=== PATIENT | female | born 2000 | race Hispanic/Latino ===

== ENCOUNTER 2021-06-02 15:28 | Outpatient (CLI) | payer OTHER, SELFPAY ==
--- NOTE | ~2021-06-02 | XR_ITS ---
EXAMINATION: XR chest 2V DATE: 06/02/2021 15:50 INDICATION: Personal history of tuberculosis. TECHNIQUE: Frontal and lateral views of the chest were obtained. COMPARISON: None. FINDINGS: There is minimal scarring at the lung apices. No pleural effusion or pneumothorax. The hear t size is normal. IMPRESSION: 1. Minimal scarring at the lung apices. Reviewed, dictated and finalized at location B.
== END 2021-06-02 15:29 | disposition home or self-care (01) ==
LOC: ANHIMG 15:30
PROVIDERS: PCP Family Medicine; Visit Provider Family Medicine
DX: Z86.11 Personal history of tuberculosis (principal)
CPT/HCPCS: 71046

== ENCOUNTER 2024-11-29 14:41 | Outpatient (CLI) | payer OTHER, SELFPAY ==
--- OUTSIDE RECORDS SUMMARY | 2024-09-20 10:40 | XMS_ITS ---
Author Organization [facility] Address [address] [place] [address] Care Team Providers Care Neuropathologist Name Role Phone Regina Oro Unavailable [phone] Jia Ladd [phone] REASON FOR VISIT 1 month f/u Encounters Encounter Location Date Provider Diagnosis [facility] L[facility] [address] [place] [address] 09/20/2024 Jia Ladd Plan Of Treatment Next Appt Details Provider Name:Jia Ladd, 02:50:00 PM, [address] [place] [address], [phone], Progress Notes * MEGAN KEEDOB: 0 (24 yo F)Acc No.[id number]:09/20/2024 Progress Notes Patient: MICHELE BAIRDENIA Provider: Manas Ladd MD :2000 A ge:24 Y S ex:Female Date:09/20/2024 Phone: Address:[address] [place] [address] Subjective: * Chief Complaints: * 1 month f/u * Electronic signature of Albert Ladd MD on 11/29/2024 at 02:48 PM CDT Sign off status: Pending * Provider: Manas Ladd MD Date: 0 09/20/2024 Generated for Lamonti ng/Fasafiag/eTransmitting on: 1 02:48 PM CDT
--- OUTSIDE RECORDS SUMMARY | 2024-10-22 10:20 | XMS_ITS ---
Author Organization [facility] Address [address] [place] [address] Care Team Providers Care Belt Cleaner Name Role Phone Regina Oro Unavailable [phone] Jia Ladd [phone] REASON FOR VISIT 1 month f/u Encounters Encounter Location Date Provider Diagnosis [facility] [address] L[facility] [address] [place] [address] 10/22/2024 Jia Ladd Plan Of Treatment Next Appt Details Provider Name:Jia Ladd, 02:50:00 PM, [address] [place] [address], [phone], Progress Notes * MEGAN KEEDOB: 0 (24 yo F)Acc No.[id number]:10/22/2024 Progress Notes Patient: MICHELE BAIRDENIA Provider: Manas Ladd MD :2000 A ge:24 Y S ex:Female Date:10/22/2024 Phone: Address:[address] [place] [address] Subjective: * Chief Complaints: * 1 month f/u * Electronic signature of Albert Ladd MD on 11/29/2024 at 02:48 PM CDT Sign off status: Pending * Provider: Manas Ladd MD Date: 0 10/22/2024 Generated for Lamonti ng/Fasafiag/eTransmitting on: 1 02:48 PM CDT
--- OUTSIDE RECORDS SUMMARY | 2024-11-18 10:40 | XMS_ITS ---
Author Organization [facility] Address [address] [place] [address] Care Team Providers Care Welding Foreman Name Role Phone Regina Oro Unavailable [phone] Jia Ladd Unavailable [phone] REASON FOR VISIT lab f/u Medications Medication SIG (Take, Route, Frequency, Duration) Notes Start Date End Date Status ARIPiprazole 2 MG Tablet Oral; Duration: 15 Days Active metFORMIN HCl ER 500 MG Tablet Extended Release 24 Hour 1 tablet with meal Orally twice a day; Duration: 100 days 07/15/2024 Active Escitalopram Oxalate 10 MG Tablet Oral; Duration: 30 Days Acti ve Encounters Encounter Location Date Provider Diagnosis [facility] Ladd [address] [place] [id number] 11/18/2024 Jia Ladd Plan Of Treatment Next Appt Details Provider Name:Jia Ladd 02:50:00 PM, [address] [place] [address], [phone], History and Physical Notes * HPI (History of Present Illness) Category Sub-Category Detail Notes Category Not es History of Present Illness 24 yo female comes in today to discuss management and evaluation of subclinical hypothyroidism, mixed dyslipidemia and insulin resistance. Concern for potential hypercortisolism. DST of 2.8 ug/dL from July however patient on control/at her initial visit in August we explained to patient how to do a correct DST and this was normal at 0.9 ug/dl. Salivary cortisol was high at 0.49 ug/dL She has insulin resistance and hypertriglyceridemia and difficulty losing weight Last seen in September we sent for CT adrenals Progress Notes * MEGAN KEEDOB: 0 (24 yo F)Acc No.[id number]:11/18/2024 Progress Notes Patient: Pool GODOYMEGAN HERNANDEZ Provider: Manas Ladd MD :2000 A ge:24 Y S ex:Female Date:11/18/2024 Phone: Address:[address] [place] [address], [id number] Subjective: * Chief Complaints: * L ab f/u * HPI: H istory of Present Illness: 24 yo female comes in today to discuss management and evaluation of subclinical hypothyroidism, mixed dyslipidemia and insulin resistance. C oncern for potential hypercortisolism. DST of 2.8 ug/dL from July however patient on control/at her initial visit in August we explained to patient how to do a correct DST and this was normal at 0.9 ug/dl. S alivary cortisol was high at 0.49 ug/dL She has insulin resistance and hypertriglyceridemia and difficulty losing weight Last seen in September we sent for CT adrenals. * Medications: T akingARIPiprazole 2 MG Tablet Oral Escitalopram Oxalate 10 MG Tablet Oral metFORMIN HCl ER 500 MG Tablet Extended Release 24 Hour 1 tablet with meal Orally twice a day Taking ARIPiprazole 2 MG Tablet Oral Taking Escitalopram Oxalate 10 MG Tablet Oral Taking metFORMIN HCl ER 500 MG Tablet Extended Release 24 Hour 1 tablet with meal Orally twice a day Billing Information: * Procedure Codes: * Electronic signature of Albert Ladd MD on 11/29/2024 at 02:48 PM CDT Sign off status: Pending * Provider: Manas Ladd MD Date: Generated for Rukhsana call/Carissa/Paulineitting on: 02:48 PM CDT
--- NOTE | ~2024-11-29 | CT_ITS ---
CT abdomen wo con INDICATION:disorder of adrenal gland . COMPARISON: None. TECHNIQUE: Axial 2.5 mm images of the abdomen were obtained without IV or oral contrast. Diagnostic sensitivity is limited due to lack of IV contrast. FINDINGS: The lung bases are clear. The liver parenchyma is unremarkable. No intrahepatic mass or ductal dilatation is evident. The gallbladder is unremarkable. The pancreas and spleen are normal in appearance. The adrenal glands are symmetric in size. The kidneys are unremarkable. No intrarenal stones are noted. There is no hydronephrosis. The stomach and bowel loops are unremarkable. The appendix is normal in appearance. The bladder and rectum are normal. The uterus and both adnexa are unremarkable. No free intraperitoneal fluid or air is evident. There is no significant retroperitoneal lymphadenopathy. The aorta, visceral vessels and renal arteries demonstrate normal caliber. The lower thoracic and lumbar vertebrae are in normal alignment. IMPRESSION: No acute abnormality is noted in the abdomen and pelvis. All CT scans at this facility are performed using low dose modulation techniques as appropriate to perform exam including the following: automated exposure control; use of iterative reconstruction technique; adjustment of the mA and/or kV according to patient size (this includes techniques or standardized protocols for targeted exams where dose is matched to indication/reason for exam). All CT scans at this facility are performed using low dose modulation techniques as appropriate to perform exam including the following: automated exposure control; use of iterative reconstruction technique; adjustment of the mA and/or kV according to patient size (this includes techniques or standardized protocols for targeted exams where dose is matched to indication/reason for exam). Reviewed, dictated and finalized at location S. IMPRESSION: No acute abnormality is noted in the abdomen and pelvis. All CT scans at this facility are performed using low dose modulation techniqu es as appropriate to perform exam including the following: automated exposure c ontrol; use of iterative reconstruction technique; adjustment of the mA and/or kV according to patient size (this includes techniques or standardized protocol s for targeted exams where dose is matched to indication/reason for exam). All CT scans at this facility are performed using low dose modulation techniqu es as appropriate to perform exam including the following: automated exposure c ontrol; use of iterative reconstruction technique; adjustment of the mA and/or kV according to patient size (this includes techniques or standardized protocol s for targeted exams where dose is matched to indication/reason for exam).
--- OUTSIDE RECORDS SUMMARY | 2024-11-29 14:48 | XMS_ITS | Data Portability ---
Author Organization [facility], Olla Address [address] [place] [address] [place] [address] Assessment Encounter Date Assessment Date Assessment LastModified by Organization Details LastModified Time 07/05/2021 07/05/2021 Annual gynecological exam performed. Patient will come back in a year unless there are new symptoms. Not available 07/02/2021 15:15:18 04/22/2024 04/22/2024 Annual gynecological exam performed. Patient will come back in a year unless there are new symptoms. [email or web address] Not available 04/22/2024 09:19:55 Plan of Treatment Reminders Order Date Submit Date Provider Last Modified By Organization Details Last Modified Time Details Appointments None recorded . Lab pap, IG + reflex HPV if ASC-U - if hpv positive run subtypin g 16, 18/45 2024 025 [facility] (Lab), [address], [place], [address], 5 17:59:34 Referral dermatol ogist referral - Referrin g this patient for multiple skin lesions Please contact this patient to schedule an appointm ent Attached to this referral are the patients demograp hics and most recent office visit notes. If you have any question s or require further informat ion, please contact me at [phone]. Thank you, Alejandra, Referral 's 2021 022 camilla Ramirez MD (Dermatology) , [address], [address], [place], [address], 11/18/202 2 15:39:02 Procedures None recorded . Surgeries None recorded . Imaging None recorded . Medication Orders None recorded . Patient TargetsNo targets recorded. Patient InstructionsNo instructions recorded. 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 M elanocytic nevus of skin Multiple Skin Lesions Referring this patient for multiple skin lesionsPlease contact this patient to schedule an appointmentAttached to this referral are the patients demographics and most recent office visit notes.If you have any questions or require further information, please contact me at [phone].Thank you,Alejandra Referral's Referring Physician: Lynne Narayan, SENIOR ESCROW OFFICER, Encounter Date: 07/05/2021 Results Created Date Observation Date Name Description Value Unit Range Abnormal Flag Note LastModifiedBy Organization Detail LastModifiedTime 07/06/19 22 07/05/2021 IMAGE GUIDE D PAP, REFLE X HPV IF ASCUS ONLY image guided Pap, reflex HPV ASCUS only SEE RESULT S BELOW CASE REPOR T: Cytol ogy Gynec ologi darcy Repor t Case: [id number] Autho marlo lee Provi darling: Lynne Narayan, BREE Colle cted: 07/05 1210 Order ing Locat ion: [place] [facility] [place] Recei tiff: 07/06 0817 First Scree n: Felecia Eduardo, CT Speci men: Scree hunter Pap - Image d, Cervi x STATE MENT OF ADEQU ACY: Satis facto ry for evalu ation Trans forma tion zone compo nent prese nt FINAL DIAGN OSIS: Negat arthur for Intra epith elial Brandi españa or [place] (NIL) . Elect luzmaria tapia lakshmi d by Felecia Eduardo, CT on 2021 at 9:29 AM ----- ----- ----- ----- ----- ----- ----- ----- ----- ----- ----- ----- ----- ----- ----- ----- ----- ---- COMME NT: Note: This speci men was revie wed by a Cytot echno logis t and/o r Patho logis t (as indic ated in this repor t) after evalu ation using the Thinp rep Imagi ng Syste m. CLINI DARCY INFOR MATIO N: Menst rual Statu s: LMP (if appli cable ): Clini darcy Histo ry/Pr eviou s Pap: Type of Neopl leilani (if appli cable ): Signi fican t Clini darcy Findi ngs: Other Histo ry: Hormo ann (if appli cable ): PAP EDUCA GIULIANO L NOTE: The Pap Test is a scree hunter test with an inher ent false negat arthur rate. Liqui d-bas ed sampl ing may decre ase, but will not elimi naz, false negat arthur resul ts. A negat arthur resul t does not precl ude the prese nce and/o r devel opmen t of disea se, since the prese nce of abnor mal cells in the sampl e depen ds on the locat ion of the lesio n and sampl ing techn ique. Tate nued regul ar scree hunter is the best metho d of cance r preve ntion . If repor roselia cytol ogic findi ng do not corre late with physi darcy and/o r histo rical findi ngs, furth er inves tigat ion is recom pan d, as clini radha madsen nted. Not Available [facility] (Lab) [address], [place], [address], 07/10/2021 10:32:21 07/06/19 22 07/05/2021 TRICH OMONA S VAGIN MAHAD (RRNA ) trichomonas vaginalis ribosomal RNA (rrna) Negati ve negati ve Not Available [facility] (Lab) [address], [place], [address], 07/10/2021 10:32:22 07/06/19 22 07/05/2021 CT/GC (BRO) , THINP REP VIAL chlamydia trachomatis, PCR Negati ve negati ve Not Available [facility] (Lab) [address], [place], [address], 07/10/2021 10:32:23 07/06/19 22 07/05/2021 CT/GC (BRO) , THINP REP VIAL neisseria gonorrhoeae, PCR Negati ve negati ve Not Available [facility] (Lab) [address], [place], [address], 07/10/2021 10:32:23 04/23/19 25 04/22/2024 IMAGE GUIDE D PAP, REFLE X HPV IF ASCUS ONLY image guided Pap, reflex HPV ASCUS only SEE RESULT S BELOW CASE REPOR T: Cytol ogy Gynec ologi darcy Repor t Case: [id number] Autho marlo lee Provi darling: Raymundo hair, Mikala , ANP, SOLAR MANAGER Colle cted: 04/22 1137 Order ing Locat ion: [place] Path[place] Recei tiff: 04/23 1150 First Scree n: Ynes Walker ret CT Speci men: Scree hunter Pap - Image d, Cervi x STATE MENT OF ADEQU ACY: Satis facto ry for evalu ation Trans forma tion zone compo nent prese nt ----- ----- ----- ----- ----- ----- ----- ----- ----- ----- ----- ----- ----- ----- ----- ----- ----- ---- FINAL DIAGN OSIS: Negat arthur for Intra epith elial Lesio patria or [place] (NIL) . Elect luzmaria martins d by LACHELLE Burk ret on 2024 at 1656 CDT ----- ----- ----- ----- ----- ----- ----- ----- ----- ----- ----- ----- ----- ----- ----- ----- ----- ---- COMME NT: This speci men was revie wed by a Cytot echno logis t and/o r Patho logis t (as indic ated in this repor t) after evalu ation using the Thinp rep Imagi ng Syste m. CLINI DARCY INFOR MATIO N: Menst rual Statu s: LMP (if appli cable ): Clini darcy Histo ry/Pr eviou s Pap: Type of Neopl leilani (if appli cable ): Signi fican t Clini darcy Findi ngs: Other Histo ry: Hormo ann (if appli cable ): PAP EDUCA GIULIANO L NOTE: The Pap Test is a scree hunter test with an inher ent false negat arthur rate. Liqui d-bas ed sampl ing may decre ase, but will not elimi naz, false negat arthur resul ts. A negat arthur resul t does not precl ude the prese nce and/o r devel opmen t of disea se, since the prese nce of abnor mal cells in the sampl e depen ds on the locat ion of the lesio n and sampl ing techn ique. Tate nued regul ar scree hunter is the best metho d of cance r preve ntion . If repor roselia cytol ogic findi ng do not corre late with physi darcy and/o r histo rical findi ngs, furth er inves tigat ion is recom pan d, as clinnish madsen nted. Not Available [facility] (Lab) [address], [place], [address], 04/25/2024 17:59:34 Result Notes None recorded. Procedures Surgical History Date Name Laterality Status Provider Name and Address Organization Details Recorded Time 5 Nexplanon Removal completed MIKALA GREEN NP [address], [place], [address], [place] [facility] 05/01/2024 10:31:21 2 Date of Last Pap Smear completed Lilia Mahoney [facility] 04/22/2024 09:20:21 Imaging Results None recorded. Procedure Notes None recorded. Medical Equipment None Reported. Allergies No known drug allergies Medications Name Sig Start Date Stop Date Status Note LastModified by Organization Details LastModified Time quetiapine 200 mg tablet TAKE 1 TABLET BY MOUTH EVERY DAY AT BEDTIME 04/22 completed Not Available Not Available Not Available metronidazo le 500 mg tablet TAKE 1 TABLET BY MOUTH EVERY 12 HOURS FOR 7 DAYS 04/22 completed Not Available Not Available Not Available hydroxyzine HCl 50 mg tablet TAKE 1 TABLET BY MOUTH TWICE DAILY 04/22 completed Not Available Not Available Not Available citalopram 20 mg tablet TAKE 1 TABLET BY MOUTH ONCE DAILY 07/05 completed Not Available Not Available Not Available olanzapine 15 mg tablet TAKE 1 TABLET BY MOUTH AT BEDTIME 07/05 completed Not Available Not Available Not Available ondansetron 4 mg disintegrat ing tablet DISSOLVE 1 TABLET IN MOUTH EVERY 8 HOURS NEEDED FOR NAUSEA AND VOMITING 04/22 completed Not Available Not Available Not Available escitalopra m 10 mg tablet TAKE 1 TABLET BY MOUTH ONCE DAILY active Not Available Not Available No t Available aripiprazol e 5 mg tablet TAKE 1 TABLET BY MOUTH ONCE DAILY active Not Available Not Available No t Available aripiprazol e 2 mg tablet TAKE 2 TABLETS BY MOUTH ONCE DAILY active Not Available Not Available No t Available quetiapine 50 mg tablet TAKE 1 TABLET BY MOUTH EVERY DAY AT BEDTIME 04/22 completed Not Available Not Available Not Available Nexplanon 68 mg subdermal implant Inject by subcutane ous route. 2020 active Not Available Not Available Not Avai lable Vitals Date Recorded Body height Body mass index (BMI) Body weight Systolic And Diastolic Provider Name and Address Organization Details Last Updated DateTime 04/22/2024 167.64 cm 31 kg/m2 21844.02 g 138/85 mm[Hg] [facility] 04/22/2024 11:03:48 Date Recorded Body height Body mass index (BMI) Body weight Systolic And Diastolic Provider Name and Address Organization Details Last Updated DateTime 05/01/2024 167.64 cm 30.9 kg/m2 80702.86 g 116/80 mm[Hg] [facility] 05/01/2024 10:05:17 Date Recorded Body height Body mass index (BMI) Body weight Systolic And Diastolic Provider Name and Address Organization Details Last Updated DateTime 07/05/2021 167.64 cm 24.6 kg/m2 16842.2 g 127/86 mm[Hg] Radha Garcia [facility] 07/05/2021 11:05:01 Social History Question Answer Notes LastModified by Organizat ion Details LastModified Time Tobacco Smoking Status Never Smoker Radha Garcia null, [facility] 07/05/2021 11:06:44 Do You Have An Advance Directive? No Information n ot available 07/05/2021 How Many Years Have You Consumed Alcohol? 5 Information not available 07/05/2021 Are You Blind Or Do You Have Difficulty Seeing? Yes [email or web address] Information n ot available 05/01/2024 What Is Your Level Of Caffeine Consumption? Moderate Information not available 07/05/2021 In The 14 Days Before Symptom Onset, Have You Had Close Contact With A Laboratory-confirm ed COVID-19 While That Case Was Ill? No Information n ot available 07/05/2021 In The 14 Days Before Symptom Onset, Have You Had Close Contact With A Person Who Is Under Investigation For COVID-19 While That Person Was Ill? No Information not available 07/05/2021 Have You Been To An Area Known To Be High Risk For COVID-19? No Information not available 07/05/2021 Are You Deaf Or Do You Have Serious Difficulty Hearing? No Information not available 07/05/2021 What Type Of Diet Are You Following? REGULAR Information n ot available 07/05/2021 What Is The Highest Grade Or Level Of School You Have Completed Or The Highest Degree You Have Received? [id number] Information not available 07/05/2021 Are There Any Guns Present In Your Home? No Information not available 07/05/2021 Do You Use Protection During Sex? Usually Information not available 07/05/2021 Do You Use Your Seat Belt Or Car Seat Routinely? Yes Information not available 07/05/2021 Do You Have Smoke And Carbon Monoxide Detectors In Your Home? Yes Information not available 07/05/2021 How Much Tobacco Do You Smoke? No Information not available 07/05/2021 Do You Use Sunscreen Routinely? Yes [email or web address] Information not available 05/01/2024 Have You Used IV Drugs? No Information not available 07/05/2021 Do You Have Difficulty Walking Or Climbing Stairs? No Information not available 07/05/2021 Sex: Unknown Functional Status Question Answer Note LastModified by OrganOcapiat ion Details LastModified Time Do you use any illicit or recreational drugs? No Information not available 07/05/2021 What is your level of alcohol consumption? Occasional Information not available 07/05/2021 Are you able to walk independently without assistance or assistive devices? YESWOREST Information not available 07/05/2021 Are you able to care for yourself independently? 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 No Information not available 07/05/2021 What is your exercise level? Moderate Information not available 07/05/2021 Mental Status Question Answer Note LastModified by Organization D etails LastModified Time Do you feel stressed (tense, restless, nervous, or anxious, or unable to sleep at night)? [id number] [email or web address] Information not available 05/01/2024 Family History Relationship Description Onset Age of this Age Resolved Age Notes LastModified by Organization Details LastModified Time Paternal Grandfather Anxiety disorder Not available 2021 11:05:04 Father Anxiety disorder Not available 2021 11:05:04 Mother Anxiety disorder Not available 2021 11:05:04 Paternal Uncle Anxiety disorder Not available 2021 11:05:04 Medical History Condition Response Allergies (Food, seasonal, environmental ) N Other N Breast Cancer N Drug/Latex Allergies/Reactions N Blood Transfusion N Lung Disease N Dermatologic Disorders N Defects or Inherited Disease N Breast Problem N Gestational Diabetes N Hematologic disorders N Anesthesia Complications N History of STI N Deep Vein Thrombosis N Polycystic ovary syndrome N Anxiety Disorder Y Autoimmune disease N Arthritis N Polyps N Infertility N History of abnormal pap N Acid Reflux (GERD) N Cancer N Varicosities N Stroke N Neurologic/Epilepsy N Endometriosis N High Cholesterol N Fibromyalgia N Headaches N Kidney Disease N Heart Problems N Kidney or Bladder Problems N Thyroid Problems N GI Problems N Eating Disorder N Anemia N Art (IVF or FET) N Psychiatric Illness N Ovarian Cancer N Diabetes N Pulmonary (TB, Asthma) N Hepatitis/Liver Disease N No Past Medical History N Eczema N Urinary Tract Infection N Abuse/Domestic Violence N Asthma N Trauma/Violence N Depression/ depression Y Heart Disease N Pre-Eclampsia N Hypertension N Osteoporosis N Thrombophilias N Gynecological History Statement/Question Response Abnormal Pap N Flow Light Date of LMP 04/22/2024 On BCP's at Conception? Y N STIs/STDs N HPV Vaccine N Duration of Flow (days) 7 Current Control Method None Date of control 09/28/2020 Sexually Active? Y Menses Monthly N Age of first menstrual cycle 12 Date of Last Pap Smear 07/05/2021 Sexual Problems? N LMP Approximate N Obstetrics History GPAL:G 0 P 0 0 0 0 Past Encounters Encounter ID Performer Location Encounter Start Date Encounter Closed Date Diagnosis/Indication Diagnosis SNOMED-CT Code Diagnosis ICD10 Code Diagnosis IMO Codes Diagnosis Note [id number] CARMITA Cristobal Olla [address] [address] 07/05/2021 10:55:31 07/05/2021 11:50:43 Gynecologic examination 04985068 Z01.419 Take Calcium with Vitamin D 1200mg daily if not receiving in daily diet. It is strongly advised to have an annual flu shot and up can obtain at most pharmacies . If you have not had a TDap shot in the last 10 years you should obtain one as well. Discussed with patient & provided with informatio n regarding Gardisil vaccine to prevent the 4 strains for HPV that cause cervical cancer if under age 26. Encourage safe sexual practices, to use condoms and limit partners if not already in a monogamous relationsh ip. Do monthly self breast exams. Have mammogram yearly or every other year depending on family history. BRCA testing is now available for patients with strong genetic history of female cancer. If interested contact the office. Engage in daily exercise of low impact aerobic exercise 45-60 minutes 4-5 times weekly. Avoid tobacco and illicit drugs as well as using moderation with alcohol intake less than 1-2 8 oz beverages daily. This lifestyle behavior pattern will lead to less health conditions and longer life span. If BMI greater than 25 weight watchers or dietary consult advised. Patient received above instructio ns, and questions have been answered. If you have any questions please call or respond to this email. Patient was made aware of the patient portal and may obtain a paper copy of today's plan if desired. WWE, no issuesNexp lanon for control, happy with this method. Inserted September 2020, needs replaced by September 2023.First pap done todayDecli ann STI testingNo family hx of breast or ovarian cancerNeed s to establish care with a PCPDerm referral for multiple skin lesionsRTC in one year for WWE or sooner if needed Contracept ion care management 909899586 Z30.9 Melanocyti c nevus of skin 451518998 D22.9 [id number] Pelon Lyon MD [facility] [address] [address] 04/22/2024 10:50:22 04/22/2024 11:23:42 Gynecologic examination 21868878 Z01.419 Annual gynecologi darcy exam performed. Patient will come back in a year unless there are new symptoms. Suggest Calcium with Vitamin D if not eating in diet. Patient advised to get annual flu shot. Recommend yearly physicals and perform monthly breast exams. Genetic testing is available for patients with family history of cancer. Engage in safe sexual practices, use condoms. Encouraged to have daily exercise. Avoid tobacco and illicit drugs, moderation of alcohol. If BMI greater than 25 dietary consult advised. If you have any questions please call or email. Pap smear- pap w/ HPV collected laboratory evaluation - PCP (pt states she gets bloodwork q3-6 months) STI testing - declined Contracept ion care management [id number] Z30.9 Patient desires to have Nexplanon removed () and she declines another BC option at this time.Patie nt prefers to use condoms.Pt to RTO for Nexplanon removal. [id number] Pelon Lyon MD [facility] [address] [address] 05/01/2024 09:52:59 05/01/2024 10:35:20 Removal of subcutaneous contraceptive 279061480 Z30.46 Patient tolerated procedure well. We discussed backup method of control if she becomes sexually active. Discussed that most women do not experience pain after removal, but if it occurs, OTC pain medication usually provide relief. She should call the provider if she develops pain, discharge, or swelling at the removal site, fever, or other concerns. Health Concerns Section Related Observation LastModified by Organization Detai ls LastModified Time None Recorded Concern Status LastModified by Organization Details LastModified Time None Recorded Advance Directives Directive N: Payers Insurance Date Sequence Insurance Name Policy Number Policy Longo Covered Member ID Longo Member ID Guarantor Name 04/30/2024 1 [facility] [id number] Rekha Antonio [id number] Rekha Alvarez 06/04/2021 1 *SELF PAY* Ananth Alvarez 04/30/2024 1 [facility] (O) Rekha Antonio 1 Rekha Antonio Notes Date Note Type Note Provider Name and Address Organization Details Recorded Time 07/06/19 22 text/htm l Annual GYNReported by PatientGenitourinary symptomsFor menstrual cycle, patient reportsnormal menses. For urinary symptoms, patient reportsno hematuriaandno incontinence. For vulva, patient reportsno genital lesion. For vagina, patient reportsnormal vaginal discharge.Breast symptomsFor breast, patient reportsno breast pain,no breast lump, andno nipple discharge.ContraceptionFor current contraception, patient reportssatisfied with current contraceptionandsubdermal contraceptive implant.Endocrine symptomsFor sexual complaints, patient reportsno sexual complaints,no pain during intercourse, andnormal libido. For menopausal symptoms, patient reportsno menopausal symptomsandnormal vaginal lubrication.Psychological symptomsFor psychological symptoms, patient reportsno depression,no anxiety, andno pmdd.Preventative measuresFor preventive measures, patient reportsencourage self breast examination,encourage regular exercise,encourage no tobacco use, andencourage regular mammograms starting age 40. CARMITA Cristobal [address], [place], [address], [facility] 07/05/2021 11:33:53 04/23/19 25 text/htm l Annual GYNReported by PatientGenitourinary symptomsFor menstrual cycle, patient reportsirregular cycle intervals (nexplanon). For urinary symptoms, patient reportsno hematuriaandno incontinence. For vulva, patient reportsno genital lesion. For vagina, patient reportsnormal vaginal discharge.Breast symptomsFor breast, patient reportsno breast pain,no breast lump, andno nipple discharge.ContraceptionFor current contraception, patient reportsimplanon.Endocrine symptomsFor sexual complaints, patient reportsno sexual complaints,no pain during intercourse, andnormal libido. For menopausal symptoms, patient reportsno menopausal symptomsandnormal vaginal lubrication.Psychological symptomsFor psychological symptoms, patient reportsno depression,no anxiety, andno pmdd.Preventative measuresFor preventive measures, patient reportsencourage self breast examination,encourage regular exercise,encourage no tobacco use, andencourage regular mammograms starting age 40. Patient presents for annual well woman exam. Patient denies concerns today.Patient would like to discuss having Nexplanon removed. MIKALA GREEN NP [address], [place], [address], [facility] 04/22/2024 11:23:15 05/02/19 25 text/htm l Patient here for Nexplanon removal. Informed consent obtained. MIKALA GREEN NP [address], [place], [address], [facility] 05/01/2024 10:34:05 OBGyn Episode No OBEpisode recorded.
--- OUTSIDE RECORDS SUMMARY | 2024-11-29 14:48 | XMS_ITS | Patient Health Record ---
Author Organization [facility] saldana Address [address] [place], [place] [address] Care Team Providers Care Human Service Technician Name Role Phone Regina Oro Unavailable [phone] Jia Ladd Unavailable [phone] Allergies No Known Allergies Results Component Value Reference Range Flag Notes .COMPREHENSIVE METABOLIC HESS EL (97890) CMP Reviewed date:07/15/2024 07:38:03 AM Interpretation: Performing Lab:JAMES, Telnic [address] [facility] [facility] Notes/Report: FASTING:YES FASTING: YES GLUCOSE 88 65-99 mg/dL N Fasting reference interval UREA NITROGEN (BUN) 10 7-25 mg/dL N CREATININE 0.59 0.50-0.96 mg/dL N EGFR 129 > OR = 60 mL/min/1.73m2 N BUN/CREATININE RATIO SEE NOTE: 6-22 (calc) Not Reported: BUN and Creatinine are within reference range. SODIUM 136 135-146 mmol/L N POTASSIUM 3.9 3.5-5.3 mmol/L N CHLORIDE 102 98-110 mmol/L N CARBON DIOXIDE 27 20-32 mmol/L N CALCIUM 9.8 8.6-10.2 mg/dL N PROTEIN, TOTAL 7.2 6.1-8.1 g/dL N ALBUMIN 4.7 3.6-5.1 g/dL N GLOBULIN 2.5 1.9-3.7 g/dL (calc) N ALBUMIN/GLOBULIN RATIO 1.9 1.0-2.5 (calc) N BILIRUBIN, TOTAL 0.5 0.2-1.2 mg/dL N ALKALINE PHOSPHATASE 91 31-125 U/L N AST 19 10-30 U/L N ALT 26 6-29 U/L N .LIPID PANEL, STANDARD (2640 ) Reviewed date:07/15/2024 07:38:03 AM Interpretation: Performing Lab:JAMES DeNovaMed11636 Administration Mony Starr HfixxxdHZ[address] [facility] Notes/Report: FASTING:YES FASTING: YES CHOLESTEROL, TOTAL 225 <200 mg/dL H HDL CHOLESTEROL 44 > OR = 50 mg/dL L TRIGLYCERIDES 194 <150 mg/dL H LDL-CHOLESTEROL 148 H Reference range: <100 Desirable range <100 mg/dL for primary prevention; <70 mg/dL for patients with CHD or diabetic patients with > or = 2 CHD risk factors. LDL-C is now calculated using the Malini calculation, which is a validated novel method providing better accuracy than the Friedewald equation in the estimation of LDL-C. Tashi SS et al. DECLAN. 2013;310(19): 0573-3290 (http://education.CHOBOLABS/faq/FAQ16 4) CHOL/HDLC RATIO 5.1 <5.0 (calc) H NON HDL CHOLESTEROL 181 <130 mg/dL (calc) H For patients with diabetes plus 1 major ASCVD risk factor, treating to a non-HDL-C goal of <100 mg/dL (LDL-C of <70 mg/dL) is considered a therapeutic option. .CBC (INCLUDES DIFF/PLT) (63 99) Reviewed date:07/15/2024 07:38:03 AM Interpretation: Performing Lab:JAMES [place] [address] [address] PwrdhrqPO[address] [facility] Notes/Report: FASTING:YES FASTING: YES WHITE BLOOD CELL COUNT 8.1 3.8-10.8 Thousand/uL N RED BLOOD CELL COUNT 4.74 3.80-5.10 Million/uL N HEMOGLOBIN 14.3 11.7-15.5 g/dL N HEMATOCRIT 43.8 35.0-45.0 % N MCV 92.4 80.0-100.0 fL N MCH 30.2 27.0-33.0 pg N MCHC 32.6 32.0-36.0 g/dL N For adults, a slight decrease in the calculated MCHC value (in the range of 30 to 32 g/dL) is most likely not clinically significant; however, it should be interpreted with caution in correlation with other red cell parameters and the patient's clinical condition. RDW 12.9 11.0-15.0 % N PLATELET COUNT 275 140-400 Thousand/uL N MPV 9.8 7.5-12.5 fL N ABSOLUTE NEUTROPHILS 5095 3661-0088 cells/uL N ABSOLUTE LYMPHOCYTES 0983 267-1891 cells/uL N ABSOLUTE MONOCYTES 672 200-950 cells/uL N ABSOLUTE EOSINOPHILS 300 15-500 cells/uL N ABSOLUTE BASOPHILS 57 0-200 cells/uL N NEUTROPHILS 62.9 N LYMPHOCYTES 24.4 N MONOCYTES 8.3 N EOSINOPHILS 3.7 N BASOPHILS 0.7 N .HEMOGLOBIN A1c (496) Reviewed date:07/16/2024 07:35:18 AM Interpretation: Performing Lab:JAMES [facility] [place] [address] [address] CljmvpkNR[address] [facility] Notes/Report: FASTING:YES FASTING: YES HEMOGLOBIN A1c 5.6 <5.7 % of total Hgb N For the purpose of screening for the presence of diabetes: <5.7% Consistent with the absence of diabetes 5.7-6.4% Consistent with increased risk for diabetes (prediabetes) > or =6.5% Consistent with diabetes This assay result is consistent with a decreased risk of diabetes. Currently, no consensus exists regarding use of hemoglobin A1c for diagnosis of diabetes in children. According to [place] Diabetes Association (ADA) guidelines, hemoglobin A1c <7.0% represents optimal control in non- diabetic patients. Different metrics may apply to specific patient populations. Standards of Medical Care in Diabetes(ADA). ESTRADIOL (4021) Reviewed date:07/15/2024 07:38:04 AM Interpretation: Performing Lab:JAMES [place] [address] [address] McuxsrpDS[address] [facility] Notes/Report: FASTING:YES FASTING: YES ESTRADIOL 36 N Reference Range Follicular Phase: 19-144 Mid-Cycle: 64-357 Luteal Phase: 56-214 Postmenopausal: < or = 31 Reference range established on post-pubertal patient population. No pre-pubertal reference range established using this assay. For any patients for whom low Estradiol levels are anticipated (e.g. males, pre-pubertal children and hypogonadal/post-menopau joanna females), the [facility] Estradiol, Ultrasensitive, LCMSMS assay is recommended (order code 98046). Please note: patients being treated with the drug fulvestrant (Faslodex(R)) have demonstrated significant interference in immunoassay methods for estradiol measurement. The cross reactivity could lead to falsely elevated estradiol test results leading to an inappropriate clinical assessment of estrogen status. [facility] order code [id number]-Oxzrwwiti, Ultrasensitive LC/MS/MS demonstrates negligible cross reactivity with fulvestrant. INSULIN (561) Reviewed date:07/15/2024 07:38:04 AM Interpretation: Performing Lab:Nava BUCKLEY-Matilda Olguin[address] Dionna Red MD Notes/Report: FASTING:YES FASTING: YES INSULIN 40.8 H Reference Range < or = 18.4 Risk: Optimal < or = 18.4 Moderate NA High >18.4 Adult cardiovascular event risk category cut points (optimal, moderate, high) are based on Insulin Reference Interval studies performed at [facility] in 2021. PROGESTERONE (745) Reviewed date:07/15/2024 07:38:04 AM Interpretation: Performing Lab:Nava RAMIREZFreeman Orthopaedics & Sports MedicineNsccz[address] [facility] HospitalDhfgwztLW[address] Dionna Red Notes/Report: FASTING:YES FASTING: YES PROGESTERONE 0.5 N Reference Ranges Female Follicular Phase < 1.0 Luteal Phase 2.6-21.5 Post menopausal < 0.5 1st Trimester 4.1-34.0 2nd Trimester 24.0-76.0 3rd Trimester 52.0-302.0 DHEA SULFATE (402) Reviewed date:07/15/2024 07:38:04 AM Interpretation: Performing Lab:Nava BUCKLEY-Tvbapb69198Tracy BowenaKS[address] Dionna Red MD Notes/Report: FASTING:YES FASTING: YES DHEA SULFATE 372 14-349 mcg/dL H FSH (470) Reviewed date:07/15/2024 07:38:04 AM Interpretation: Performing Lab:Nava BUCKLEY LenexaKS[address] Dionna Red MD Notes/Report: FASTING:YES FASTING: YES FSH 6.2 N Reference Range Follicular Phase 2.5-10.2 Mid-cycle Peak 3.1-17.7 Luteal Phase 1.5- 9.1 Postmenopausal 23.0-116.3 LH (615) Reviewed date:07/15/2024 07:38:04 AM Interpretation: Performing Lab:Nava BUCKLEY-Yaynkg15920 Blanka Palacios, NvkyvbFD[address] Dionna Red MD Notes/Report: FASTING:YES FASTING: YES LH 2.6 N Reference Range Follicular Phase 1.9-12.5 Mid-Cycle Peak 8.7-76.3 Luteal Phase 0.5-16.9 Postmenopausal 10.0-54.7 T4, FREE (866) Reviewed date:07/15/2024 07:38:04 AM Interpretation: Performing Lab:Nava RAMIREZ [place] [id number] Administration [address]ony Starr [place] [address] [facility] Emily Red Notes/Report: FASTING:YES FASTING: YES T4, FREE 1.0 0.8-1.8 ng/dL N TSH (899) Reviewed date:07/15/2024 07:38:04 AM Interpretation: Performing Lab:Nava RAMIREZAustin [place] [id number] Administration Mony Starr [place] [address] [facility] Red Notes/Report: FASTING:YES FASTING: YES TSH 5.52 H Reference Range > or = 20 Years 0.40-4.50 Ranges First trimester 0.26-2.66 Second trimester 0.55-2.73 Third trimester 0.43-2.91 T3, FREE (36092) Reviewed date:07/15/2024 07:38:04 AM Interpretation: Performing Lab:Nava BUCKLEY-Ixdtxq86590 Blanka Palacios, AbtxynUS[address] Dionna Red MD Notes/Report: FASTING:YES FASTING: YES T3, FREE 3.5 2.3-4.2 pg/mL N TESTOSTERONE, FREE (DIALYSIS ) AND TOTAL,MS (83513) Reviewed date:07/18/2024 08:11:40 AM Interpretation: Performing Lab:Z3E, [facility]-[address] [place] [address], [address], PwnlmrvlklGB[address] Flores Plascencia MD,PhD Notes/Report: FASTING:YES FASTING: YES TESTOSTERONE, TOTAL, MS 16 2-45 ng/dL For additional information, please refer to https://education.inZair/faq/FAQ16 5 (This link is being provided for informational/educationa l purposes only.) (Note) This test was developed and its analytical performance characteristics have been determined by [facility]. It has not been cleared or approved by the FDA. This assay has been validated pursuant to the CLIA regulations and is used for clinical purposes. TESTOSTERONE, FREE 3.3 0.1-6.4 pg/mL (Note) This test was developed and its analytical performance characteristics have been determined by [facility]. It has not been cleared or approved by the FDA. This assay has been validated pursuant to the CLIA regulations and is used for clinical purposes. [facility] med fusion [address] [place] [address],[address] [facility] [address] Flores Plascencia MD, PhD TEST AUTHORIZATION Reviewed date:07/16/2024 07:35:18 AM Interpretation: Performing Lab:KS [facility]-Yggyju[address] Blanka Palacios, TuvcfkYJ[address] Dionna Red MD Notes/Report: FASTING:YES FASTING: YES TEST NAME: HEMOGLOBIN A1c TEST CODE: [id number] CLIENT CONTACT: TRIAGE REGISTER NURSE EDIT REPORT ALWAYS MESSAGE SIGNATURE The laboratory testing on this patient was verbally requested or confirmed by the ordering physician or his or her authorized customer care representative after contact with an employee of [facility]. Federal regulations require that we maintain on file written authorization for all laboratory testing. Accordingly we are asking that the ordering physician or his or her authorized customer care representative sign a copy of this report and promptly return it to the client support coordinator. Signature: COMMENT Fax number: [phone] Reason For Referral No Information Medications Medication SIG (Take, Route, Frequency, Duration) Notes Start Date End Date Status ARIPiprazole 2 MG Tablet Oral; Duration: 15 Days Active metFORMIN HCl ER 500 MG Tablet Extended Release 24 Hour 1 tablet with meal Orally twice a day; Duration: 100 days 07/15/2024 Active Escitalopram Oxalate 10 MG Tablet Oral; Duration: 30 Days Acti ve Social History Section Notes: Non-Contributory Problems Problem Type SNOMED Code ICD Code Onset Dates Problem Status W/U Status Risk Notes Problem Disorder of adrenal gland (15038224) Disorder of adrenal gland, unspecified (E27.9) Active confirmed Problem Obesity due to excess calories (887513263) Other obesity due to excess calories (E66.09) Active confirmed Problem Fatigue (94871814) Other fatigue (R53.83) Active confirmed Problem Polycystic ovary syndrome (disorder) (482707834) PCOS (polycystic ovarian syndrome) (E28.2) Active confirmed Problem Moderate major depression (810071) Moderate major depression (F32.1) Active confirmed Problem Anxiety (30324991) Anxiety (F41.9) Active confirmed Problem Insulin resistance (917576352) Insulin resistance (E88.819) Active confirmed Vital Signs Heart Rate 86 /min 09/19/2024 Oximetry 94 % 08/19/2024 Height-cm 170.18 cm 09/19/2024 Blood pressure diastolic 71 mm Hg 09/19/2024 Weight-kg 86.09 kg 09/19/2024 Height 67 in 09/19/2024 Blood pressure systolic 102 mm Hg 09/19/2024 Weight 189.8 lbs 09/19/2024 BMI 29.72 kg/m2 09/19/2024 Encounters Encounter Location Date Provider Diagnosis [address] [address] 07/10/2024 Regina Oro Encounter for screen ing for other disorder Z13.89 ; Other obesity due to excess calories E66.09 ; Dietary counseling and surveillance Z71.3 ; Other fatigue R53.83 ; Hirsutism L68.0 ; Abnormal weight gain R63.5 ; Anxiety F41.9 and Moderate major depression F32.[address] Ladd [address] [place] [phone] 08/19/2024 Jia Ladd Other obesity due to excess calories E66.09 ; Hypercortisolism E24.9 ; Insulin resistance E88.819 and Dietary counseling and surveillance Z71.[address] Ladd [address] [place] [address] 09/19/2024 Jia Ladd Insulin resistance E88.819 ; PCOS (polycystic ovarian syndrome) E28.2 ; Disorder of adrenal gland, unspecified E27.9 ; Hypercortisolism E24.9 and Dietary counseling and surveillance Z71.3 [place] [id number] 07/15/2024 [facility] [address] [place], [place] [address] 07/15/2024 Regina Oro AMMO [place] [id number] 08/08/2024 [facility] [address] [place] [address] 08/09/2024 Regina Oro [place] [id number] 09/16/2024 Regina Ladd [address] [place] [address] 09/18/2024 [place] [address] 11/17/2024 Regina Oro Assessments Encounter Date Diagnosis (ICD Code) Assessment Notes Treatment Notes Treatment Clinical Notes Section Notes 07/10/2024 Encounter for screening for other disorder (ICD-10 - Z13.89) 08/19/2024 Other obesity due to excess calories (ICD-10 - E66.09) 08/19/2024 Hypercortisolism (ICD-10 - E24.9) 09/19/2024 PCOS (polycystic ovarian syndrome) (ICD-10 - E28.2) 09/19/2024 Insulin resistance (ICD-10 - E88.819) 09/19/2024 Disorder of adrenal gland, unspecified (ICD-10 - E27.9) 08/19/2024 Insulin resistance (ICD-10 - E88.819) 07/10/2024 Other obesity due to excess calories (ICD-10 - E66.09) 08/19/2024 Dietary counseling and surveillance (ICD-10 - Z71.3) Spent 15 minutes preventative counseling patient on dietary recommendations and changes in setting of hyperglycemia- need to restrict refined sugars and processed foods and incorporate up to 150 minutes of moderate level activity weekly. 07/10/2024 Dietary counseling and surveillance (ICD-10 - Z71.3) 09/19/2024 Hypercortisolism (ICD-10 - E24.9) 07/10/2024 Hirsutism (ICD-10 - L68.0) 07/10/2024 Other fatigue (ICD-10 - R53.83) 07/10/2024 Abnormal weight gain (ICD-10 - R63.5) 09/19/2024 Dietary counseling and surveillance (ICD-10 - Z71.3) Spent 15 minutes preventative counseling patient on dietary recommendations and changes in setting of hyperglycemia- need to restrict refined sugars and processed foods and incorporate up to 150 minutes of moderate level activity weekly. 07/10/2024 Anxiety (ICD-10 - F41.9) 07/10/2024 Moderate major depression (ICD-10 - F32.1) 07/10/2024 Other 1. Obesity - Plan: - Order fasting bloodwork to evaluate for PCOS and check insulin levels - Patient to fast for 8 hours before blood draw - Orders to be sent to [facility] - Initiate tirzepatide 2.5 mg subcutaneous injection weekly, compounded with B12 - Provide patient education on medication: - Purpose: to promote feeling of fullness for longer periods - Side effects: nausea, vomiting, constipation - Instructions: increase water and fiber intake - Recommend focus on protein and fiber intake - Encourage resistance workouts - Provide patient with information packet on tirzepatide, including side effects and background information 2. Bipolar Disorder and Anxiety - Plan: - Continue current psychiatric medications as prescribed by Dr. Leonardo - Consider reassessment of psychiatric medication regimen in the context of weight gain at follow-up 08/19/2024 Other Assessment and Plan: 1. Suspected Arnaud's Syndrome- Discontinue current control (norethindrone and ethinylestradiol) for 3-4 days before testing- Perform 24-hour urine cortisol study- Collect late-night salivary cortisol samples (between 11 p.m. and midnight) on two different nights- Repeat dexamethasone suppression test- Measure ACTH levels to determine imaging focus (pituitary vs. adrenal glands)- Schedule follow-up appointment in 3-4 weeks to review results and determine next steps- Advise use of condoms or progesterone-only contraception during testing period- Discuss potential need for imaging studies (pituitary or adrenal) based on test results- Inform patient about possible treatment options: - Surgical intervention if pituitary tumor is found - Medication management if adrenal issue is identified- Educate patient on the importance of treating high cortisol before starting a family 2. Anxiety and Depression- Continue current medication regimen, including Lexapro- Monitor mental health symptoms in relation to cortisol levels- Reassess treatment plan after confirming hypercortisolism diagnosis 3. Metabolic Concerns- Continue metformin (dose not specified)- Monitor cholesterol levels and insulin resistance in relation to cortisol levels- Reassess metabolic management after confirming hypercortisolism diagnosis Spent 45 minutes preparing to see the patient (ex review of tests/chart), obtaining and / or reviewing separately obtained history, performing a medically appropriate examination and/or evaluation, counseling and educating the patient/family/caregivers homecare, ordering medications, tests, or procedures, referring and communicating with other health plant health care technician, documenting clinical information in the electronic or other health record, independently interpreting results and communicating results to the patient/family/caregivers homecare and care coordinating patient plan. Patient alert and oriented x 4 and aware of discussion noted above and in agreeance to plan in management of abnormal weight gain/obesity, concern for hypercortisolism, insulin resistance and weight management. 09/19/2024 Other Megan, a patient with a history of PCOS, presents with dizziness, weight gain, sleep disturbances, anxiety, and mood issues. Hypercortisolism (suspected)Assessme nt: Patient presents with symptoms suggestive of [place]'s syndrome, including weight gain (40 pounds in one year), sleep disturbances, anxiety, mood issues, and red stretch martin on the belly. Previous cortisol tests have been inconclusive, with one positive test in June (while on control), a negative test in August, and a recent test showing normal levels (0.9). Saliva tests were also inconsistent, with one slightly elevated (0.49) and another normal (0.04). Given the clinical presentation and inconclusive test results, further evaluation is warranted to rule out hypercortisolism.Pl an:- Order imaging of adrenal glands to check for adenomas or inflammation- Follow up in one month to review results and discuss further treatment if needed Prediabetes with insulin resistanceAssessmen t: Patient's insulin levels are elevated, and glucose levels are in the prediabetic range. This is consistent with the rapid weight gain and may be related to the suspected Arnaud's syndrome or PCOS. The patient was previously started on metformin by another provider (Regina) but experienced side effects including acid reflux and vomiting.Plan:- Discontinue metformin due to gastrointestinal side effects- Continue tirzepatide injections (current dose 5 mg) - Patient reports weight loss of 7 pounds in one month on this medication- Recommend inositol powder supplement for insulin resistance and hormone balance - Contains berberine, inositol, and quercetin - Approximate cost: $35 for a 30-day supply- Educate patient on taking tirzepatide with food to reduce side effects- Follow up in one month to assess progress Polycystic Ovary Syndrome (PCOS)Assessment: Patient has a known history of PCOS. Recent lab results show very low progesterone levels, which is important for ovarian function. PCOS may be contributing to the patient's high cortisol or insulin levels.Plan:- Continue monitoring hormone levels, particularly progesterone- Address insulin resistance as part of PCOS management (see prediabetes plan)- Follow up in one month to reassess and adjust treatment as needed Anxiety and stressAssessment: Patient reports experiencing anxiety and stress, which may be related to hormonal imbalances or could be exacerbating other symptoms. Sleep disturbances are also noted, with the patient reporting difficulty falling back asleep when waking during the night.Plan:- Monitor anxiety symptoms and their response to hormonal treatments- Reassess at follow-up appointment in one month Spent 15 minutes preparing to see the patient (ex review of tests/chart), obtaining and / or reviewing separately obtained history, performing a medically appropriate examination and/or evaluation, counseling and educating the patient/family/caregivers homecare, ordering medications, tests, or procedures, referring and communicating with other health plant health care technician, documenting clinical information in the electronic or other health record, independently interpreting results and communicating results to the patient/family/caregivers homecare and care coordinating patient plan. Patient alert and oriented x 4 and aware of discussion noted above and in agreeance to plan in management of PCOS, insulin resistance/weight management and concern for hypercortisolism. Plan Of Treatment Pending Test Test Name Order Date *CT ABDOMEN W/O CONTRAST 13214 5 Next Appt Details Provider Name:Jia Ladd, 02:50:00 PM, [address] [place] [address], [phone], Insurance Providers Payer Name Payer Address Payer Phone Subscriber Number Group Number Insured Name Patient Relationship to Insured Coverage Start Date Coverage End Date [facility] [address] [address] [place] [phone] [id number] MEGAN KEE Self - patient is the insured Medical (General) History Medical History History ICD Code anxiety depression abnormal weight gain hirsutism
--- OUTSIDE RECORDS SUMMARY | 2024-11-29 14:48 | XMS_ITS | Clinical Summary ---
Author Organization [facility] Address [address] [place] [address] Care Team Providers Care Information And Referral Director Name Role Phone Unknown, Notinfile Primary Care Provider Unavail able Allergies No known active allergies Medications lidocaine (LIDODERM) 5 % Place 1 patch on the skin daily Remove & discard patch within 12 hours or as directed by MD. 30 patch 01/25/2022 Active cyclobenzaprine (FLEXERIL) 10 mg tablet Take 1 tablet (10 mg total) by mouth 2 (two) times a day as needed for muscle spasms 20 tablet 06/28/2024 Active Social History Tobacco Use Types Packs/Day Years Used Date Smoking Tobacco: Never Assessed Personal Safety Answer Date Recorded Have you ever been in or are you currently in a harmful physical or emotional relationship or is someone making you feel afraid or unsafe? Denies 06/28/2024 Comments No Sex and Gender Information Value Date Recorded Sex Assigned at Not on file Legal Sex Female 12:46 PM [employer] Gender Identity Not on file Sexual Orientation Not on file Last Filed Vital Signs Vital Sign Reading Time Taken Comments Blood Pressure 106/58 06/28/2024 9:37 PM CDT Pulse 72 06/28/2024 9:37 PM CDT Temperature 37 C (98.6 F) 06/28/2024 9:37 PM CDT Respiratory Rate 18 06/28/2024 9:37 PM CDT Oxygen Saturation 100% 06/28/2024 9:37 PM CDT Inhaled Oxygen Concentration - - Weight 88.3 kg (194 lb 10.7 oz) 06/28/2024 5:31 PM CDT Height 170.2 cm (5' 7) 06/28/2024 5:31 PM CDT Body Mass Index 30.49 06/28/2024 5:31 PM CDT Plan of Treatment Health Maintenance Due Date Last Done Comments Cervical Cancer Screening 2000 Depression Screening 2000 Hepatitis C Screening 2000 HPV Vaccines (2 - 3-dose series) 10/18/2017 09/20/2017 Regular Well Visit/Exam 18-64 01/20/2018 Covid-19 Vaccine (3 - season) 2024 02/09/2021, 06/22/2020 Influenza Vaccine (#1) 2024 12/19/2016 DTaP/Tdap/Td Vaccine (5 - Td or Tdap) 12/19/2026 12/19/2016, 01/27/2012, 2000, Additional history exists Hepatitis B Screening Completed 11/22/2016 , 06/22/2016, 2000, Additional history exists Varicella Vaccines Completed 10/05/2017, 12/19/2016 Pneumococcal vaccine <65 Aged Out No longer eligible based on patient's age to complete this topic Insurance CHOICE PLUS Care Teams Information And Referral Director Relationship Specialty Start Date End Date Unknown, Notinfile PCP - General 01/25/22
--- OUTSIDE RECORDS SUMMARY | 2024-11-29 14:48 | XMS_ITS | Patient Health Record ---
Author Organization [facility] Address [address] [place] [address] Care Team Providers Care User Experience Lead Name Role Phone Jim Nixon Unavailable [phone] Reason For Referral No Information Medications Medication SIG (Take, Route, Frequency, Duration) Notes Start Date End Date Status Lidocaine 5% Patch External A ctive Escitalopram Oxalate 10 MG Tablet Oral Active traZODone HCl 50 MG Tablet Oral Active QUEtiapine Fumarate 200 MG Tablet Oral Active Cyclobenzaprine HCl 10 MG Tablet Oral Active predniSONE 10 MG Tablet Oral Active ARIPiprazole 2 MG Tablet Oral Active hydrOXYzine HCl 50 MG Tablet Oral Active ARIPiprazole 5 MG Tablet Oral Active Plan Of Treatment No Information Insurance Providers Payer Name Payer Address Payer Phone Subscriber Number Group Number Insured Name Patient Relationship to Insured Coverage Start Date Coverage End Date [facility] [address] [place] [phone] [id number] MEGAN AGEE Self - patient is the insured
== END 2024-11-29 14:42 | disposition home or self-care (01) ==
PROVIDERS: PCP Family Medicine; Visit Provider Internal Medicine Endocrinology, Diabetes & Metabolism
DX: E27.9 Disorder of adrenal gland, unspecified (principal)
CPT/HCPCS: 74150